=== PATIENT | female | born 1965 | race Caucasian/White ===

== ENCOUNTER 2019-04-27 11:35 | Emergency (ER) | payer BC, OTHER ==
[2019-04-27] MEDS ORDERED: NORMAL SALINE 1000 ML 1,000 ML IV ONE ×2 (12:50→18:46)
--- NOTE | 2019-04-27 12:52 | ER Document Report ---
ED Medical Screen (RME) - General Chief Complaint: General Weakness Stated Complaint: BODY ACHES, COUGH,CONGESTION Time Seen by Provider: 04/27/19 12:49 Primary Care Provider: ALESSANDRO VALENZUELA PA [Primary Care Provider] - Follow up as needed Mode of Arrival: Wheelchair Information source: Patient Notes: 53-year-old female presents to ED for dizziness cold all over. She states yesterday she felt very sluggish but was able to get up and do all of her chores. She states that today she woke up with body aches all over no fever very sluggish. She is also dizzy and lightheaded. She states she has a history of neuropathy rheumatoid arthritis and osteoporosis. She states she did have a LAP-BAND in the last time she felt like this she was very dehydrated. She stat es she is been eating drinking now and she does not think she is dehydrated. She states she was recently treated for UTI and did again last week she had to be started on antibiotics again for UTI. She states she does not smoke drink or do any drugs. She works at the [employer] and lives with her family. I have greeted and performed a rapid initial assessment of this patient. A comprehensive ED assessment and evaluation of the patient, analysis of test results and completion of medical decision making process will be conducted by an additional ED providers. Dictation of this chart was performed using voice recognition software; therefore, there may be some unintended grammatical errors. TRAVEL OUTSIDE OF THE [place] IN LAST 30 DAYS: No - Related Data Allergies/Adverse Reactions: No Known Allergies Allergy (Verified 04/27/19 11:37) Physical Exam - Vital signs Vitals: Temp Pulse Resp BP Pulse Ox 98.8 F 113 H 18 93/62 L 100 04/27/19 11:42 04/27/19 11:42 04/27/19 11:42 04/27/19 11:42 04/27/19 11:42 Course - Vital Signs Vital signs: Temp Pulse Resp BP Pulse Ox 98.8 F 113 H 18 93/62 L 100 04/27/19 11:42 04/27/19 11:42 04/27/19 11:42 04/27/19 11:42 04/27/19 11:42 Doctor's Discharge - Discharge Referrals: ALESSANDRO VALENZUELA PA [Primary Care Provider] - Follow up as needed
[2019-04-27 13:35] LABS: ABSOLUTE LYMPHOCYTES (AUTO) 0.6 10^3/uL (0.5-4.7); ABSOLUTE MONOCYTES (AUTO) 0.9 10^3/uL (0.1-1.4); ABSOLUTE NEUT (AUTO) 9.1 10^3/uL (1.7-8.2); BASOPHILS % (AUTO) 0.3 % (0-2); EOSINOPHILS % (AUTO) 0.2 % (0-6); HEMATOCRIT 41.1 % (36.0-47.0); HEMOGLOBIN 13.5 g/dL (12.0-15.5); LYMPHOCYTES % (AUTO) 5.8 % (13-45); MEAN CORPUSCULAR HEMOGLOBIN 28.1 pg (27.0-33.4); MEAN CORPUSCULAR HGB CONC 32.9 g/dL (32.0-36.0); MEAN CORPUSCULAR VOLUME 86 fl (80-97); MONOCYTES % (AUTO) 8.8 % (3-13); PLATELET COUNT 215 10^3/uL (150-450); RED BLOOD COUNT 4.81 10^6/uL (3.72-5.28); RED CELL DISTRIBUTION WIDTH 13.3 % (11.5-14.0); SEGMENTED NEUTROPHILS % (AUTO) 84.9 % (42-78); TOTAL CELLS COUNTED % (AUTO) 100 %; WHITE BLOOD COUNT 10.7 10^3/uL (4.0-10.5)
[2019-04-27 13:43] LABS: APPEARANCE,URINE CLEAR; BILIRUBIN,URINE NEGATIVE (NEGATIVE); COLOR,URINE YELLOW; GLUCOSE, URINE NEGATIVE (NEGATIVE); KETONES,URINE NEGATIVE (NEGATIVE); LEUKOCYTE ESTERASE,URINE NEGATIVE (NEGATIVE); NITRITE,URINE NEGATIVE (NEGATIVE); PROTEIN,URINE 100 mg/dL (NEGATIVE); URINE SPECIFIC GRAVITY 1.015; UROBILINOGEN,URINE NEGATIVE mg/dL (<2.0)
[2019-04-27 13:49] LABS: ALANINE AMINOTRANSFERASE 24 U/L (9-52); ALBUMIN 4.3 g/dL (3.5-5.0); ALKALINE PHOSPHATASE 60 U/L (38-126); ANION GAP 7 (5-19); ASPARTATE AMINO TRANSFERASE 18 U/L (14-36); BILIRUBIN,DIRECT 0.2 mg/dL (0.0-0.4); BILIRUBIN,TOTAL 0.9 mg/dL (0.2-1.3); BLOOD UREA NITROGEN 14 mg/dL (7-20); CALCIUM 9.1 mg/dL (8.4-10.2); CARBON DIOXIDE 30 mmol/L (22-30); CHLORIDE 101 mmol/L (98-107); CREATINE KINASE 79 U/L (30-135); GLUCOSE 95 mg/dL (75-110); LIPASE 71.6 U/L (23-300); POTASSIUM 4.2 mmol/L (3.6-5.0); SODIUM 138.2 mmol/L (137-145); TOTAL PROTEIN 7.3 g/dL (6.3-8.2)
--- NOTE | 2019-04-27 19:22 | EKG REPORT ---
SEVERITY:- NORMAL ECG - SINUS RHYTHM : Confirmed by: Bisi Rao MD 27-Apr-2019 19:20:52
--- NOTE | 2019-04-27 19:32 | RADIOLOGY REPORT (SQ) ---
EXAM DESCRIPTION: CHEST 2 VIEWS COMPLETED DATE/TIME: 04/27/2019 7:22 pm REASON FOR STUDY: cough, chills COMPARISON: None. EXAM PARAMETERS: NUMBER OF VIEWS: two views TECHNIQUE: Digital Frontal and Lateral radiographic views of the chest acquired. RADIATION DOSE: NA LIMITATIONS: none FINDINGS: LUNGS AND PLEURA: No pneumothorax. Right upper lobe patchy airspace -nodular opacities. No pleural effusion. MEDIASTINUM AND HILAR STRUCTURES: Age-appropriate contour. HEART AND VASCULAR STRUCTURES: Heart normal size. No evidence for failure. BONES: No acute findings. HARDWARE: None in the chest. OTHER: No other significant finding. IMPRESSION: Right upper lobe patchy airspace -nodular opacities. TECHNICAL DOCUMENTATION: JOB ID: [id number] [place]-72 2010 [employer]- All Rights Reserved Reading location - IP/workstation name: [employer]
--- NOTE | 2019-04-27 21:50 | RADIOLOGY REPORT (SQ) ---
EXAM DESCRIPTION: CLINICAL HISTORY: 53 years Female cough, chills, lung nodules on CXR COMPARISON: Chest x-ray from today. TECHNIQUE: Axial images with IV contrast. 80 mL of Omnipaque 350 sagittal coronal reconstruction. This exam was performed according to our departmental dose-optimization program, which includes automated exposure control, adjustment of the mA and/or kV according to patient size and/or use of iterative reconstruction technique. FINDINGS: Central pulmonary arteries are unremarkable. Mildly dilated aortic sinus up to 33 mm. The rest of the aorta is unremarkable. No evidence for cardiomegaly. Mild loculated anterior pericardial effusion up to 7 mm. There is no suspicious mediastinal adenopathy. There is significant dilatation of the esophagus beginning in the upper chest and measuring up to 28 mm in transverse diameter. There is mild to moderate hiatal hernia secondary to gastric banding. There is thickening of the distal esophageal wall above the hernia suspicious for esophagitis less likely other process. There is a mild to moderate sized multinodular infiltrate in the right upper lobe posteriorly. High suspicion of infection possibly aspiration pneumonia. This is less likely a tumor such as multifocal adenocarcinoma. There is a small focal scarring in the left lower lobe. There is additional minimal fibrosis in the dependent portions of both lower lobes. There is no suspicious pleural disease. Limited images of the upper abdomen demonstrate the banding structure. The angle is normal. It is possibly too tight given the proximal dilatation. There is a tiny opacity in the left retroperitoneum projecting superior to the left renal vein and inferior to the pancreas and celiac artery. Series 2 image 62. Of questionable significance. IMPRESSION: 1. Significant multinodular process in the right upper lobe posteriorly. High suspicion of pneumonia possibly aspiration. Differential diagnosis with a multinodular adenocarcinoma which is much less likely but if does not resolve should be considered. 2. Significant dilatation of the entire thoracic esophagus. There is associated gastric banding. The esophageal dilatation may be secondary to the band being too tight and the presence of a mild to moderate hiatal hernia. The dilatation of the esophagus may be secondary to thickening of the distal wall of the esophagus possibly esophagitis. 3. Tiny low density interposed between the left renal vein and the pancreas. Significance not clear. Low suspicion of a significant finding. 4. Nonspecific small loculated anterior pericardial effusion.
[2019-04-27] MEDS ORDERED: LEVOFLOXACIN 750 MG TABLET PO ONE (22:24)
[2019-04-27] MEDS ORDERED: CEFTRIAXONE INJ 1000 MG VIAL IV ONE (22:24)
--- NOTE | 2019-04-27 22:31 | ER Document Report ---
ED General - General Chief Complaint: General Weakness Stated Complaint: BODY ACHES, COUGH,CONGESTION Time Seen by Provider: 04/27/19 12:49 Primary Care Provider: ALESSANDRO VALENZUELA PA [NO LOCAL MD] - Follow up as needed Mode of Arrival: Wheelchair TRAVEL OUTSIDE OF THE [place] IN LAST 30 DAYS: No - HPI Notes: Patient is a 53-year-old female with a history of rheumatoid arthritis, osteoporosis, and previous lap band procedure presents to the emergency depart ment with report that she has had a recent cough and congestion for the last 2 to 3 days and had some chills this morning. She reports feeling lightheaded and orthostatic upon standing. She states she feels dehydrated. She questions having another UTI. She just finished antibiotics for urinary tract infection approximately a month ago. The patient denies any unilateral motor or sensory deficit. The patient reports no chest pain or difficulty breathing or measured fever. The patient denies any skin rash or breakdown. No diarrhea or dysuria. Patient states her weight has been stable.. The patient denies any night sweats. The patient reports she normally runs a low blood pressure ranging from the 90s to low 100s systolics. - Related Data Allergies/Adverse Reactions: No Known Allergies Allergy (Verified 04/27/19 11:37) Past Medical History - General Information source: Patient - Social History Smoking Status: Former Smoker Frequency of alcohol use: None Drug Abuse: None Lives with: Family Family History: Reviewed & Not Pertinent Patient has suicidal ideation: No Patient has homicidal ideation: No Renal/ Medical History: Denies: Hx Peritoneal Dialysis Musculoskeletal Medical History: Reports Hx Arthritis Review of Systems - Review of Systems -: Yes All other systems reviewed and negative Physical Exam - Vital signs Vitals: Temp Pulse Resp BP Pulse Ox 98.8 F 113 H 18 93/62 L 100 04/27/19 11:42 04/27/19 11:42 04/27/19 11:42 04/27/19 11:42 04/27/19 11:42 - Notes Notes: PHYSICAL EXAMINATION: GENERAL: Well-appearing, well-nourished and in no acute distress. HEAD: Atraumatic, normocephalic. EYES: Pupils equal round and reactive to light, extraocular movements intact, conjunctiva are normal. ENT: Nares patent, oropharynx clear without exudates. Moist mucous membranes. NECK: Normal range of motion, supple without lymphadenopathy LUNGS: Breath sounds coarse to auscultation bilaterally and equal. No wheezes r ales or rhonchi. HEART: Regular rate and rhythm without murmurs ABDOMEN: Soft, nontender, nondistended abdomen. No guarding, no rebound. No masses appreciated. Surgical scars which are well-healed. Female : deferred Musculoskeletal: Normal range of motion, no pitting or edema. No cyanosis. Negative Homans. No palpable cord. NEUROLOGICAL: Cranial nerves grossly intact. Normal speech, normal gait. Normal sensory, motor exams PSYCH: Normal mood, normal affect. SKIN: Warm, Dry, normal turgor, no rashes or lesions noted. No oral Course - Re-evaluation Re-evalutation: 04/27/19 22:30 Patient was bolused with 2 L of IV fluids and repeat vitals were stable. Orthostatics were stable. The patient denied feeling lightheaded when she was ambulating. Chest x-ray raised question of a right apical pneumonia versus m ass. CT scan showed what appeared to be aspiration pneumonia although carcinoma cannot be excluded and an ex-smoker. Findings were shared with the patient and I discussed at length the need for follow-up and a repeat CT scan or other imaging to follow. The patient understood this. The patient was given IV Rocephin and p.o. Levaquin. No clinical suggestion for sepsis or renal insufficiency or anemia or UTI. No evidence for acute PA or ischemia. No clinical suggestion for tuberculosis. Patient was also instructed to follow- up with her gastric bypass specialist related to the esophagitis. 04/27/19 22:32 - Vital Signs Vital signs: Temp Pulse Resp BP Pulse Ox 98.8 F 84 18 116/70 100 04/27/19 11:42 04/27/19 21:10 04/27/19 11:42 04/27/19 21:10 04/27/19 11:42 - Laboratory Result Diagrams: 04/27/19 13:03 04/27/19 13:03 Laboratory results interpreted by me: 04/27/19 04/27/19 13:00 13:03 WBC 10.7 H Seg Neutrophils % 84.9 H Lymphocytes % 5.8 L Absolute Neutrophils 9.1 H Urine Protein 100 H - EKG Interpretation by Ct EKG shows normal: Sinus rhythm Additional EKG results interpreted by me: 04/27/19 22:31 EKG is interpreted by me showed normal sinus rhythm heart rate of 94. There is no gross evidence for acute PA or ischemia noted. No old EKG available for comparison. Discharge - Discharge Clinical Impression: Dehydration, Orthostasis, Hiatal hernia Pneumonia Qualifiers: Pneumonia type: due to unspecified organism Laterality: right Lung location: upper lobe of lung Qualified Code(s): J18.1 - Lobar pneumonia, unspecified organism Condition: Stable Disposition: HOME, SELF-CARE Instructions: Pneumonia ([facility]), Dehydration ([facility]) Additional Instructions: Drink plenty of fluids. Stand up slowly if you feel lightheaded. You need a follow-up CT scan of the chest to ensure that the right upper lobe pneumonia clears up. Take Tylenol as needed for fever. Return to the emergency department in case of difficulty breathing or high fever. Follow-up with the surgeon who performed a lap band procedure to see if the band needs to be loosened or adjusted. Prescriptions: Levofloxacin [Levaquin 500 mg Tablet] 500 mg PO DAILY #10 tablet Forms: Return to Work Referrals: ALESSANDRO VALENZUELA PA [NO LOCAL MD] - Follow up in 1 week
[2019-04-27] MEDS ORDERED: ONDANSETRON 4 MG TAB.RAPDIS PO ONE (23:40)
[2019-04-28 00:10] VITALS: BP 104/70
== END 2019-04-28 00:09 | disposition home or self-care (01) ==
LOC: ER 11:35
DX: J18.1 Lobar pneumonia, unspecified organism (principal); E86.0 Dehydration; K44.9 Diaphragmatic hernia without obstruction or gangrene; K20.9 Esophagitis, unspecified; R05 Cough; R68.83 Chills (without fever); R42 Dizziness and giddiness; Z87.440 Personal history of urinary (tract) infections; Z98.84 Bariatric surgery status; Z87.891 Personal history of nicotine dependence
CPT/HCPCS: 93005; 99284; 96361; 96365; 36415; 87086; 82553; 82550; 83690; 83735; 84703; 85025; 80053; 81001; 71046; 71260; 93010; J0696; J7030

== ENCOUNTER 2020-06-22 03:50 | Emergency (ER) | payer OTHER ==
[2020-06-22] MEDS ORDERED: OXYCODONE-ACETAMINOPHEN 5-325 MG TABLET PO ONE (08:44)
--- NOTE | 2020-06-22 08:55 | ER Document Report ---
ED Extremity Problem, Lower - General Chief Complaint: Wrist Pain Stated Complaint: KNEE PAIN/HAND PAIN Time Seen by Provider: 06/22/20 08:30 Primary Care Provider: DANA BAIRD PA-C [Primary Care Provider] - Follow up as needed Mode of Arrival: Ambulatory Information source: Patient TRAVEL OUTSIDE OF THE [place] IN LAST 30 DAYS: No - HPI Notes: Patient presents with a RA otitis flare. She states she has chronic rheumatoid and is managed by loss control representative. She states that her right wrist and left knee have been swollen and tender over the last several days. She states she just finished a steroid taper as well. She states she does have hydrocodone and gabapentin at home but has not helped the pain. She states that the right wrist is the most painful and that is been a "fiery" pain. This pain is constant. It is worse with movement better with rest. It radiates up her right arm. It is severe. She denies any injuries or falls. - Related Data Allergies/Adverse Reactions: No Known Allergies Allergy (Verified 04/27/19 11:37) Past Medical History - General Information source: Patient - Social History Smoking Status: Never Smoker Frequency of alcohol use: None Drug Abuse: None Family History: Reviewed & Not Pertinent Renal/ Medical History: Denies: Hx Peritoneal Dialysis Musculoskeletal Medical History: Reports Hx Arthritis Review of Systems - Review of Systems Constitutional: denies: Chills, Fever Cardiovascular: denies: Chest pain, Palpitations Respiratory: denies: Cough, Short of breath -: Yes All other systems reviewed and negative Physical Exam - Vital signs Vitals: Temp Pulse Resp BP Pulse Ox 98.4 F 80 16 117/74 100 06/22/20 03:59 06/22/20 03:59 06/22/20 03:59 06/22/20 03:59 06/22/20 03:59 Interpretation: Normal - General General appearance: Appears well, Alert - HEENT Head: Normocephalic, Atraumatic Eyes: Normal Pupils: PERRL - Respiratory Respiratory status: No respiratory distress Chest status: Nontender Breath sounds: Normal Chest palpation: Normal - Cardiovascular Rhythm: Regular Heart sounds: Normal auscultation Murmur: No - Abdominal Inspection: Normal Distension: No distension Bowel sounds: Normal Tenderness: Nontender Organomegaly: No organomegaly - Back Back: Normal, Nontender - Extremities General upper extremity: Other - Right wrist is mildly swollen. Has limited range of motion. Has some mild erythema and increased temperature. It appears consistent with a rheumatoid his flare. General lower extremity: Other - Patient's left knee is swollen erythematous and has increased temperature. It also has limited range of motion. It appears consistent with a rheumatoid his flare.. No: Rhonda's sign - Neurological Neuro grossly intact: Yes Cognition: Normal Orientation: AAOx4 [place] Coma Scale Eye Opening: Spontaneous [place] Coma Scale Verbal: Oriented Anselmo Coma Scale Motor: Obeys Commands Anselmo Coma Scale Total: 15 Speech: Normal Motor strength normal: LUE, RUE, LLE, RLE Sensory: Normal - Psychological Associated symptoms: Normal affect, Normal mood - Skin Skin Temperature: Warm Skin Moisture: Dry Skin Color: Normal Course - Re-evaluation Re-evalutation: 06/22/20 10:18 labs ok. feels better after meds and with splint - Vital Signs Vital signs: Temp Pulse Resp BP Pulse Ox 98.4 F 80 16 117/74 100 06/22/20 03:59 06/22/20 03:59 06/22/20 03:59 06/22/20 03:59 06/22/20 03:59 - Laboratory Result Diagrams: 06/22/20 09:00 06/22/20 09:00 Laboratory results interpreted by me: 06/22/20 06/22/20 09:00 09:00 RDW 14.7 H [place] % (Auto) 15.4 H Sodium 135.8 L Glucose 118 H Procedures - Immobilization Right Wrist Time completed: 09:00 Pre-Proc Neuro Vasc Exam: Normal Immobilizer type: Cock-up Performed by: RN Post-Proc Neuro Vasc Exam: Normal Alignment checked and good: Yes Discharge - Discharge Clinical Impression: Rheumatoid arthritis flare Condition: Stable Disposition: HOME, SELF-CARE Instructions: Oral Narcotic Medication ([facility]) Referrals: DANA BAIRD PA-C [Primary Care Provider] - Follow up in 3-5 days
[2020-06-22 09:14] LABS: ABSOLUTE LYMPHOCYTES (AUTO) 0.9 10^3/uL (0.5-4.7); ABSOLUTE MONOCYTES (AUTO) 0.7 10^3/uL (0.1-1.4); ABSOLUTE NEUT (AUTO) 3.2 10^3/uL (1.7-8.2); BASOPHILS % (AUTO) 0.3 % (0-2); EOSINOPHILS % (AUTO) 0.6 % (0-6); HEMATOCRIT 38.5 % (36.0-47.0); HEMOGLOBIN 12.9 g/dL (12.0-15.5); LYMPHOCYTES % (AUTO) 17.6 % (13-45); MEAN CORPUSCULAR HEMOGLOBIN 28.4 pg (27.0-33.4); MEAN CORPUSCULAR HGB CONC 33.4 g/dL (32.0-36.0); MEAN CORPUSCULAR VOLUME 85 fl (80-97); MONOCYTES % (AUTO) 15.4 % (3-13); PLATELET COUNT 188 10^3/uL (150-450); RED BLOOD COUNT 4.52 10^6/uL (3.72-5.28); RED CELL DISTRIBUTION WIDTH 14.7 % (11.5-14.0); SEGMENTED NEUTROPHILS % (AUTO) 66.1 % (42-78); TOTAL CELLS COUNTED % (AUTO) 100 %; WHITE BLOOD COUNT 4.9 10^3/uL (4.0-10.5)
[2020-06-22 09:36] LABS: ANION GAP 7 (5-19); BLOOD UREA NITROGEN 10 mg/dL (7-20); CARBON DIOXIDE 28 mmol/L (22-30); CHLORIDE 101 mmol/L (98-107); GLUCOSE 118 mg/dL (75-110); POTASSIUM 4.4 mmol/L (3.6-5.0)
[2020-06-22 10:48] VITALS: BP 109/68
== END 2020-06-22 10:48 | disposition home or self-care (01) ==
LOC: ER 03:50
DX: M06.9 Rheumatoid arthritis, unspecified (principal); M25.531 Pain in right wrist; M25.562 Pain in left knee; M79.89 Other specified soft tissue disorders; M79.601 Pain in right arm
CPT/HCPCS: 36415; 80048; 85025; 99283